=== PATIENT | male | born 1975 | race Caucasian/White ===

== ENCOUNTER 2018-05-15 16:17 | Emergency (ER) | payer BC, MEDICAID ==
[2018-05-15 16:43] VITALS: BP 159/94
--- NOTE | 2018-05-15 16:43 | UC ---
Throat Pain/Nasal Serjio HPI - HPI Summary HPI Summary: Patient states he woke approximately 3:00 this morning with some cough and congestion as well as body aches. Patient states progressively to the day he's felt fatigue. Patient states since noon time has had some sinus congestion low back ache. No fevers. No nausea or vomiting. Decreased energy. Patient's calcium was diagnosed with influenza yesterday. Patient is not immunocompromised. Patient to get the flu vaccine. Patient is not taken any [id number] products. Patient denies any changes to his bowel or bladder. Patient's medications reviewed this visit. - History of Current Complaint Stated Complaint: COUGH, BODY ACHES Time Seen by Provider: 05/15/18 16:35 Hx Obtained From: Patient Severity: Mild Pain Intensity: 2 - Allergies/Home Medications Allergies/Adverse Reactions: Allergies Allergy/AdvReac Type Severity Reaction Status Date / Time No Known Allergies Allergy Verified 05/15/18 16:39 Home Medications: Home Medications Atorvastatin* [Lipitor*] 10 mg PO DAILY 05/15/18 [History Confirmed 05/15/18] PMH/Surg Hx/FS Hx/Imm Hx Previously Healthy: Yes - Surgical History Surgical History: Yes Surgery Procedure, Year, and Place: LEFT WRIST GLANGLION CYST SX - Family History Known Family History: Positive: Other - finance diagnosed with flu 05/14/18 - Social History Occupation: Employed Full-time Lives: With Family Alcohol Use: Occasionally Substance Use Type: None, Prescribed Substance Use Comment - Amount & Last Used: TRAZODONE Smoking Status (MU): Never Smoked Tobacco Review of Systems All Other Systems Reviewed And Are Negative: Yes Constitutional: Positive: Chills, Fatigue ENT: Positive: Nasal Discharge, Sinus Congestion Respiratory: Positive: Cough Musculoskeletal: Positive: Myalgia Is Patient Immunocompromised?: No Physical Exam - Summary Physical Exam Summary: Vital Signs Reviewed: Yes A+Ox3, no distress Eyes: Conjunctiva Clear, MADAN. EOM intact and full ENT: Hearing grossly normal TM x 2 clear, turbinates inflammed and boggy, + PND , mmoist, uvula midline, no exudate, no erythema Neck: Positive: Supple Respiratory: Positive: No respiratory distress, No accessory muscle use + CTA throughout no w/r Cardiovascular: RRR nl s1, s2 no m/r CBT <2 sec abd soft + BS nt/nd no guarding, no distension Musculoskeletal Exam: CHISHOLM x 4 without difficulty Strength Intact, ROM Intact Neurological: Positive: Alert, + sensation throughout Psychological: Positive: Normal Response To Family Skin: Positive: no rash, no ecchymosis Triage Information Reviewed: Yes Throat Pain/Nasal Course/Dx - Course Course Of Treatment: Patient presents to urgent care with 14 hours of progressive body aches, congestion, cough, and fatigue. Patient's healthy diagnosed with influenza yesterday. Patient is not immunocompromised. Patient of the vaccine for flu. On exam patient mildly tachycardic. Patient tired appearing. Patient with boggy sinuses postnasal drip. Lungs are clear with good oxygenation. Influenza A is positive. Start patient on Tamiflu. Hydrate. Secretion precautions. Work note. Humidify air. Strict return precautions. Patient comfortable in agreement with plan. BP elevated - recommend f/u with PCP - Differential Dx/Diagnosis Provider Diagnosis: Influenza A Discharge - Sign-Out/Discharge Documenting (check all that apply): Patient Departure All imaging exams completed and their final reports reviewed: No Studies - Discharge Plan Condition: Stable Disposition: HOME Prescriptions: Fluticasone NASAL SPRAY 50MCG* [Flonase NASAL SPRAY 50MCG*] 2 spray BOTH NARES DAILY #1 btl Oseltamivir CAP* [Tamiflu CAP*] 75 mg PO BID #10 cap Patient Education Materials: Influenza (ED) Forms: *Gen. Provider Communication, *Work Release Referrals: Berta Knight PA [Primary Care Provider] - Additional Instructions: - Alternate ibuprofen (Advil. Motrin) 600mg and Tylenol 1000mg every 3 hours for pain or fever. Take with food. Do NOT take for more then 4-5 days - Stay well hydrated - drink plenty of non-alcoholic, non-caffinated beverages - Okay to take over the counter decongestant medications. - These infections are spread by secretions - do not share eating or drinking utensils. Clean items with your secretions - cell phone, computer mouse, TV remote. Once you start to feel better, change your pillowcase and your toothbrush - humidify the air in the room where you sleep (humidifier, boil water, run a steam shower, put cups of water next to the heat register) - Take Tamiflu 2 times a day as prescribed - Okay to fill and use nasal spray as prescribed - Get plenty of restful sleep - Contact your doctor, return here, or go to the emergency department with questions or concerns - Billing Disposition and Condition Condition: STABLE Disposition: Home
[2018-05-15 16:58] LABS: Influenza A Molecular POSITIVE (Negative)
== END 2018-05-15 17:14 | disposition home or self-care (01) ==
LOC: UCCORT 16:17
DX: J10.1 Influenza due to other identified influenza virus with other respiratory manifestations (principal)
CPT/HCPCS: 99202; G0463